=== PATIENT | female | born 2000 | race Two or more races ===

== ENCOUNTER 2025-04-06 07:27 | Emergency (ER) | payer OTHER ==
[~2025-04-06] VITALS: Ht 165.1 cm; Wt 82.1 kg
[2025-04-06 07:43] VITALS: BP 109/71; O2SAT 99
[2025-04-06 09:05] LABS: BASO % 0.6 % (0.1-1.2); EOS # 0.24 (0.04-0.54); EOS % 3.6 % (0.7-7.0); LYMPH # 1.37 (1.18-3.74); LYMPH % 20.4 % (19.3-53.1); MEAN PLATELET VOLUME 11.20 fl (9.4-12.4); MONO # 0.55 (0.24-0.82); MONO % 8.2 % (4.7-12.5); NEUT # 4.48 (1.56-6.13); NEUT % 66.8 % (34.0-71.1); RED CELL DISTRIBUTION WIDTH 14.6 % (11.6-14.4)
== END 2025-04-06 10:42 | disposition home or self-care (01) ==
LOC: ER 07:27
PROVIDERS: General Practice
DX: O26.891 Other specified pregnancy related conditions, first trimester (principal); T14.8XXA Other injury of unspecified body region, initial encounter; W18.39XA Other fall on same level, initial encounter; Y93.89 Activity, other specified; Y92.89 Other specified places as the place of occurrence of the external cause; Y99.9 Unspecified external cause status; Z3A.01 Less than 8 weeks gestation of pregnancy

== ENCOUNTER 2025-06-12 18:39 | Emergency (ER) | payer OTHER ==
[~2025-06-12] VITALS: Ht 165.1 cm; Wt 77.1 kg
[~2025-06-12 18:39] MED LIST: PRENATAL + DHA1 EAC1 PO
[2025-06-12] MEDS ORDERED: RINGERS SOLUTION,LACTATED 1,000 ML IV SCH (19:45)
[2025-06-12] MEDS ORDERED: ONDANSETRON HCL 4 MG in 0.9 % SODIUM CHLORIDE 50 ML IV ONE (19:45)
[2025-06-12] MEDS ORDERED: FAMOTIDINE/PF 20 MG in 0.9 % SODIUM CHLORIDE 8 ML IV PUSH ONE (19:45)
[2025-06-12 20:48] LABS: BASO % 0.2 % (0.1-1.2); EOS # 0.46 (0.04-0.54); EOS % 5.5 % (0.7-7.0); LYMPH # 1.76 (1.18-3.74); LYMPH % 20.9 % (19.3-53.1); MEAN PLATELET VOLUME 10.60 fl (9.4-12.4); MONO # 0.74 (0.24-0.82); MONO % 8.8 % (4.7-12.5); NEUT # 5.42 (1.56-6.13); NEUT % 64.4 % (34.0-71.1); RED CELL DISTRIBUTION WIDTH 14.1 % (11.6-14.4)
[2025-06-12 21:30] LABS: ALT/SGPT 15.0 U/L (12-78); AST/SGOT 11.0 U/L (15-37); BILIRUBIN TOTAL 0.16 mg/dL (0.3-1.2); BUN CREA RATIO 18.0 (7.0-25.0); CREATININE SERUM 0.4 mg/dL (0.55-1.02); GFR 192.94; GLOBULINA 3.7 G/DL (2.4-3.5); GLUCOSE FASTING 107.0 mg/dL (65-100); HCG QUANTITATIVE 55332.0 mUI/mL (1-3); OSMOLALITY SERUM 280.0 MOSM/KG (275-295)
[2025-06-12 22:29] LABS: URINE APPEARANCE Clear; URINE BILIRRUBIN Negative (NEGATIVE); URINE BLOOD Negative; URINE COLOR Yellow; URINE GLUCOSE Negative (NEGATIVE); URINE KETONE Negative (NEGATIVE); URINE LEUKOCYTE Negative; URINE NITRATE Negative; URINE PROTEIN Negative (NEGATIVE); URINE UROBILINOGEN 1.0 E.U./dl
[2025-06-12 22:32] LABS: URINE BACTERIA 484.6 uL (0.0-1933); URINE EPITHELIAL CELLS 2.4 uL (0.0-38.8); URINE RBC 5.5 uL (0.0-20.8); URINE WBC 4.4 uL (0.0-23.2)
[2025-06-12 22:35] LABS: URINE CAST 0.00 uL (0.0-1.40)
== END 2025-06-12 23:34 | disposition home or self-care (01) ==
LOC: ER 18:40
PROVIDERS: General Practice
DX: Z33.1 Pregnant state, incidental (principal); Z3A.17 17 weeks gestation of pregnancy; E16.2 Hypoglycemia, unspecified; R55 Syncope and collapse

== ENCOUNTER 2025-06-20 14:08 | Inpatient (IN) | payer OTHER ==
[~2025-06-20] VITALS: Ht 165.1 cm; Wt 85.3 kg
[2025-06-20 14:45] VITALS: O2SAT 98
--- NOTE | 2025-06-20 14:46 | NUR ---
PACIENTE FEMINA, S/V EN PARAMETROS, SE UBICA EN CAMA 10 PARA EVALUACION.
[2025-06-20] MEDS ORDERED: ACETAMINOPHEN 500 MG GEL..CAP PO ONE ×2 (17:15→17:47)
[2025-06-20] MEDS ORDERED: RINGERS SOLUTION,LACTATED 1,000 ML IV SCH (17:15)
[2025-06-20] MEDS ORDERED: FAMOtidine 10 MG/ML (4ML VIAL) IV PUSH ONE (17:15)
[2025-06-20] MEDS ORDERED: FAMOTIDINE/PF 20 MG/2 ML VIAL ONE (17:47)
[2025-06-20 18:32] LABS: BASO % 0.3 % (0.1-1.2); EOS # 0.37 (0.04-0.54); EOS % 3.9 % (0.7-7.0); LYMPH # 1.86 (1.18-3.74); LYMPH % 19.5 % (19.3-53.1); MEAN PLATELET VOLUME 11.00 fl (9.4-12.4); MONO # 0.78 (0.24-0.82); MONO % 8.2 % (4.7-12.5); NEUT # 6.45 (1.56-6.13); NEUT % 67.7 % (34.0-71.1); RED CELL DISTRIBUTION WIDTH 13.7 % (11.6-14.4)
--- NOTE | 2025-06-20 18:42 | NUR ---
SE EDUCA PACIENTE SOBRE EL [place] MEDICO Y ESTA REFIERE ENTENDER. SE CANALIZA Y SE ADMINISTRA MEDICAMENTOS GILDARDO ORDEN MEDICA. SE PAYTON MUESTRAS DE LABORATORIOS Y SE ENTREGA ENVASE DE U/A. PENDIENTE A PLACA. SE REALIZA EKG
[2025-06-20 18:54] LABS: INR < 0.93
[2025-06-20 19:14] LABS: ALT/SGPT 19.0 U/L (12-78); AST/SGOT 17.0 U/L (15-37); BILIRUBIN TOTAL 0.15 mg/dL (0.3-1.2); BUN CREA RATIO 25.0 (7.0-25.0); CREATININE SERUM 0.32 mg/dL (0.55-1.02); GFR 249.61; GLOBULINA 4.0 G/DL (2.4-3.5); GLUCOSE FASTING 100.0 mg/dL (65-100); OSMOLALITY SERUM 276.0 MOSM/KG (275-295)
[2025-06-20 19:57] LABS: URINE APPEARANCE Clear; URINE BILIRRUBIN Negative (NEGATIVE); URINE BLOOD Negative; URINE COLOR Yellow; URINE GLUCOSE Negative (NEGATIVE); URINE KETONE Negative (NEGATIVE); URINE LEUKOCYTE Negative; URINE NITRATE Negative; URINE PROTEIN Negative (NEGATIVE); URINE UROBILINOGEN 1.0 E.U./dl
[2025-06-20 20:01] LABS: URINE BACTERIA 3070.8 uL (0.0-1933); URINE EPITHELIAL CELLS 31.0 uL (0.0-38.8); URINE RBC 17.8 uL (0.0-20.8); URINE WBC 16.1 uL (0.0-23.2)
[2025-06-20 20:14] LABS: URINE CAST 0.14 uL (0.0-1.40); URINE CRYSTALS FEW /HPF
[2025-06-20] MEDS ORDERED: FAMOTIDINE/PF 20 MG in 0.9 % SODIUM CHLORIDE 8 ML IV PUSH SCH (21:11)
[2025-06-20] MEDS ORDERED: ONDANSETRON HCL 4 MG in 0.9 % SODIUM CHLORIDE 50 ML IV PRN (21:15)
[2025-06-20] MEDS ORDERED: ACETAMINOPHEN 500 MG GEL..CAP PO PRN (21:15)
[2025-06-21 02:14] VITALS: BP 90/60
[2025-06-21 08:03] VITALS: BP 97/64
[2025-06-21] MEDS ORDERED: PNV,CALCIUM 72/IRON/FOLIC ACID 1 TAB TABLET PO SCH (09:00)
[2025-06-21 15:46] VITALS: BP 99/64
[2025-06-22] VITALS: BP 100/57
[2025-06-22 08:50] VITALS: BP 107/75
[2025-06-22 17:37] VITALS: BP 111/70
[2025-06-23 00:41] VITALS: BP 91/50
[2025-06-23 08:00] VITALS: BP 101/62
[2025-06-23 17:02] VITALS: BP 123/73
[2025-06-24 00:48] VITALS: BP 96/64
[2025-06-24 08:00] VITALS: BP 109/70
== END 2025-06-24 10:39 | disposition home or self-care (01) | DRG 833 ==
LOC: ER 14:08 → OB/GYN 21:10
PROVIDERS: General Practice; ADMIT Obstetrics & Gynecology; ATTEND Obstetrics & Gynecology
PROC: B246ZZZ Ultrasonography of Right and Left Heart (ICD-10-PCS; principal; 2025-06-20)
PROC: BW38ZZZ Magnetic Resonance Imaging (MRI) of Head (ICD-10-PCS; 2025-06-23)
DX: O26.892 Other specified pregnancy related conditions, second trimester (principal); R55 Syncope and collapse; Z3A.18 18 weeks gestation of pregnancy; E16.2 Hypoglycemia, unspecified
CPT/HCPCS: 70551

== ENCOUNTER → 2025-07-08 10:01 | Outpatient (CLI) | payer OTHER | END | disposition home or self-care (01) | LOC: PRENATAL 10:01 | PROVIDERS: ATTEND Obstetrics & Gynecology Maternal & Fetal Medicine | DX: O44.02 Complete placenta previa NOS or without hemorrhage, second trimester (principal); Z14.8 Genetic carrier of other disease; Z3A.21 21 weeks gestation of pregnancy ==